=== PATIENT | female | born 1985 | race Caucasian/White ===

== ENCOUNTER 2017-09-27 11:59 | Emergency (ER) | payer OTHER ==
[~2017-09-27] VITALS: Ht 162.6 cm; Wt 59.0 kg
[~2017-09-27 11:59] MED LIST: ALBU90OI INH; ALPR1 PO; AMOCLA875 PO; AMOX250 PO; AMOX500 PO; AZIT250 PO; BCP; BCP'S; Bactrim Ds Tab1 EACH PO; CEPH500 PO; CIPR500 PO; CRUTCH3 USE; CYCL10 PO; Cleocin HCl300 MG PO; FAMO20 PO; GABA100 PO; HYDACE10B PO; HYDACE5 PO; HYDACE5325 PO; HYDR1TAB94 PO; IBUP600 PO; IBUP800 PO; KETO10 PO; LOPE2C PO; MELO7.5 PO; MULVITMINE; NAPR375 PO; NAPR500 PO; NEOCOLOTSU AD; Norco 5-325 Ta1 EACH PO; PROM25 PO; Pepcid20 MG PO; Percocet 5-3251 EACH PO; RXAMOX500 PO; RXCYCL10 PO; RXHYD5325 PO; RXHYDACE PO; RXTRAM50 PO; SULTRIDS PO; TOPI25 PO; TRAM50 PO
== END 2017-09-27 13:40 | disposition home or self-care (01) ==
LOC: ER 11:59
DX: M25.511 Pain in right shoulder (principal); Z88.5 Allergy status to narcotic agent; F17.200 Nicotine dependence, unspecified, uncomplicated
CPT/HCPCS: 73030; 99283

== ENCOUNTER → 2020-04-15 | Outpatient (CLI) | payer OTHER ==
[2020-04-16 07:41] LABS: Candida species (DNA Probe) Negative (NEGATIVE); G. vaginalis (DNA Probe) Positive (NEGATIVE); T. vaginalis (DNA Probe) Positive (NEGATIVE)
[2020-04-17 06:10] LABS: CHLAMYDIA TRACHOMATIS, NAA Negative (Negative); HPV 16 Negative (Negative); HPV 18 Negative (Negative); HPV OTHER HR TYPES Negative (Negative); NEISSERIA GONORRHOEAE, NAA Negative (Negative)
== END ==
LOC: LAB SHORT 14:28 → LAB SRC 14:28
PROVIDERS: Nurse Practitioner Family
DX: Z12.4 Encounter for screening for malignant neoplasm of cervix (principal); Z72.51 High risk heterosexual behavior
CPT/HCPCS: 87480; 87491; 87510; 87591; 87624; 87660; G0123